=== PATIENT | male | born 1980 | race Hispanic/Latino ===

== ENCOUNTER 2019-08-02 13:17 | Emergency (ER) | payer OTHER ==
[2019-08-03 11:19] LABS: SARS-CoV-2 MS2 Positive; SARS-CoV-2 N Gene Positive; SARS-CoV-2 S Gene Positive; SARS-CoV-2 orf1ab Positive
--- NOTE | 2019-08-12 16:26 | EKG ---
Test Reason : Blood Pressure : / mmHG Vent. Rate : 091 BPM Atrial Rate : 091 BPM P-R Int : 140 ms QRS Dur : 078 ms QT Int : 366 ms P-R-T Axes : 000 112 123 degrees QTc Int : 450 ms Normal sinus rhythm Left posterior fascicular block Inferior infarct , age undetermined Abnormal ECG Confirmed by SHARMILA SCOTT, AGUSTÍN ([id number]), photography editor PAOLA ARREGUIN ([id number]) on 08/12/2019 4:25:25 PM Referred By: Confirmed By:AGUSTÍN ODLL MD
== END 2019-08-02 16:25 | disposition home or self-care (01) ==
LOC: ERS 13:17
DX: U07.1 COVID-19 (principal); R05 Cough; R50.9 Fever, unspecified
CPT/HCPCS: 87635; 87804; 93005; U0003